=== PATIENT | male | born 1980 | race Caucasian/White ===

== ENCOUNTER 2017-01-07 13:19 | Inpatient (IN) | payer SELFPAY ==
--- NOTE | ~2017-01-07 | HP ---
History And Physical [facility] [address] [place]. [address] NAME: KEN KHAN : 80 STATUS : ADM IN [facility]#: [id number] AGE: 36 ADM/REG DATE : 01/07/17 MR#: [id number] REPORT SERV DATE: 01/07/17 DICTATED BY: CONCHITA SANCHEZ DATE: 01/07/17 REPORT STATUS : Draft TRANSCRIBED BY: MODJimy DATE: 01/07/17 DATE OF ADMISSION: 01/07/2017 CHIEF COMPLAINT: Agitation and homicidal threats. HISTORY OF PRESENT ILLNESS: This is a 36-year-old male who has a medical history significant for polysubstance abuse, who was a resident of outpatient rehab facility at [place], who recently moved back to [place] and was noted to be acting belligerent at one of the [place] post office and the police was called to the scene. It was noted that on arrival of police at the scene of the incident, the patient was acting paranoid, was yelling out homicidal threat and was acting belligerent. The patient was arrested at the scene and brought to the ER now for further evaluation. In the ER, it was noted that the patient continued to be agitated and restless while in the ER. He was also noted to have multiple check moses in his forearm and lower extremities and in the groin area. Initial laboratory testing showed leukocytosis. Also in the ER, he was noted to have significant erythema of the bilateral forearm concerning for possible cellulitis. Also, urine drug screen in the ER was positive for amphetamine and opiates. Due to the patient's persistent agitation in the ER, the patient received IM Geodon 20 mg. At the time of my interview, the patient was completely somnolent and difficult to arouse. I made multiple attempts to wake up the patient in order to take a full HPI, but the patient was completely sleepy and noncooperative. Hence, I was not able to obtain a detailed HPI from the patient. The above dictated HPI was per chart review from [facility]. PAST MEDICAL HISTORY: Significant for: 1. Polysubstance abuse. 2. Cellulitis of the leg. PAST SURGICAL HISTORY: Not available. SOCIAL HISTORY: History of polysubstance abuse, heroin use, as well as amphetamine use, noted also to have history of tobacco use and alcohol use. At this time, I could not obtain patient's detailed social history, resident where he lives because he is completely somnolent and not waking up to answer questions at this time. FAMILY HISTORY: Unable to obtain. MEDICATION HISTORY: No list available on [facility] review. The patient unable to provide history. ALLERGY HISTORY: Per [facility] review, no known drug allergies. REVIEW OF SYSTEMS: Unable to obtain. The patient is somnolent after IM Geodon. PHYSICAL EXAMINATION: VITAL SIGNS: Blood pressure is 156/100, pulse 102 beats per minute, temperature 98 degrees History And Physical [address] [address] NAME: KEN KHAN : 80 STATUS : ADM IN [facility]#: [id number] AGE: 36 ADM/REG DATE : 01/07/17 MR#: [id number] REPORT SERV DATE: 01/07/17 DICTATED BY: CONCHITA SANCHEZ DATE: 01/07/17 REPORT STATUS : Draft TRANSCRIBED BY: CATHERINE DATE: 01/07/17 Celsius, saturating 97% on room air. GENERAL: Lying in bed quietly, very sleepy, and unable to arouse and the patient to wake up. The patient is very agitated and not cooperative. HEENT: Extraocular muscles intact. Pupils equal and reactive. NECK: Supple. No palpable cervical lymphadenopathy. CHEST: Equal expansion. LUNGS: Clear to auscultation bilaterally. No crackles. No wheezing. No rhonchi. CARDIOVASCULAR: Heart regular rate and rhythm. S1-S2. No murmurs appreciated. ABDOMEN: Soft, nontender. No palpably enlarged organomegaly. EXTREMITIES: No pedal edema. NEUROLOGICAL: Limited. The patient is noncooperative. SKIN: Extensive erythema at the anterior forearm extending from the cubital fossa to the mid forearm bilaterally and warm to touch. LABORATORY DATA: Hematology: WBC 12.3, RBC 4.38, MCV 87.0, and MHC 37.0. Urine drug screen, complete, amphetamine positive, opiates positive. Chemistry: Sodium 138, potassium 3.7, chloride 102, bicarb 26, BUN 27, creatinine 1.33. GFR 68, glucose 108, calcium 9.2, total protein 8.3, albumin 4.5, globulin 3.8, albumin- globin ratio 1.2, total bilirubin 1.6. Alkaline phosphatase 6.62, ALT 63, and AST 74. Acetaminophen level less than 2.0. Imaging, none available. Urinalysis, none available. In summary, this is a 36-year-old male with a history of polysubstance abuse, who was brought to the hospital by the police after he was found to be acting belligerent at a post office. On arrival to the emergency room, he was found to have a urine drug screen positive for opioids and amphetamines. Also noted was bilateral forearm cellulitis. ASSESSMENT AND PLAN: 1. Bilateral forearm cellulitis. The patient has extensive erythema extending from the cubital fossa to the midforearm bilaterally. Also noted to have leukocytosis of 12.3. Blood cultures have been taken in the Emergency Room at this time. The patient is currently receiving IV vancomycin and Zosyn. Given the patient's known history of IV drug use, I will be highly suspicious for possible Staph aureus bacteremia in this patient. We will follow the patient's blood cultures closely. Based on the results of the blood cultures, we will determine if the patient will need an echocardiogram for further evaluation. At this time, we will continue broad-spectrum antibiotics and continue to monitor. 2. Polysubstance abuse. The patient has a history of polysubstance abuse, has urine drug screen positive for heroin and amphetamines. The patient's presentation of paranoia, agitation, homicidal threats may be related to acute intoxication of amphetamine, however given the patient's homicidal threats and the patient is currently on History And Physical [address] [address] NAME: KEN KHAN : 80 STATUS : ADM IN PAT#: [id number] AGE: 36 ADM/REG DATE : 01/07/17 MR#: [id number] REPORT SERV DATE: 01/07/17 DICTATED BY: CONCHITA SANCHEZ DATE: 01/07/17 REPORT STATUS : Draft TRANSCRIBED BY: MODJimy DATE: 01/07/17 . The patient has received IM Geodon and currently sleeping quietly without any further episodes of agitation. At this time, I will continue patient's . I will consult Psychiatry to help rule out any form of psychiatric disorder in this patient. As well, I will order IV lorazepam 1-2 mg p.r.n. for agitation due to amphetamine intoxication. If the patient's agitation is not controlled by lorazepam, I will order one time dose of IM Geodon to make a total of 40 mg in the next 24 hours. The patient will not receive more than 40 mg of Geodon in the next 24 hours except if recommended by Psychiatry. 3. I will also monitor the patient's withdrawals from amphetamine and heroin abuse. 4. Hypertension. The patient's blood pressure on presentation was 156/102 likely related to agitation and amphetamine use, known documented history of hypertension. We will monitor the patient closely. We will continue patient on benzodiazepines p.r.n. for agitation and monitor the patient's blood pressure closely. 5. Elevated creatinine. Creatinine of 1.3. The patient's last known baseline was approximately 1.0. We will start the patient on IV fluids. We will check creatinine phosphokinase in this patient to rule out rhabdo, given the patient's recent presentation of agitations. 6. Elevated bilirubin of 1.2. The patient ALT, AST, alkaline phosphatase are essentially within normal limits. I will order patient's fractionated bilirubin and continue further evaluation based on the results. 7. To complete infection workup in this patient, I will order a chest x-ray and urinalysis. 8. Deep vein thrombosis prophylaxis, heparin subcu. 9. Code status. Full code. 10.Disposition: We will admit the patient to the cardiac telemonitoring unit given the history of amphetamine use and tachycardia and agitation. 11.We will continue a one-on-one sitter for close monitoring and observation. We will consult Psychiatry to determine the duration of on this patient. The patient to be admitted under the hospitalist's care. MERI/CATHERINE Conchita Sanchez MD / [id number]
--- NOTE | ~2017-01-07 | CN ---
Consultation Report [facility] [address] [place]. [address] NAME: KEN KHAN : 80 STATUS : ADM IN PAT#: [id number] AGE: 36 ADM/REG DATE : 01/07/17 MR#: [id number] REPORT SERV DATE: 01/08/17 DICTATED BY: CHEIKH TAMEZ DATE: 01/08/17 REPORT STATUS : Draft TRANSCRIBED BY: CATHERINE DATE: 01/08/17 PSYCHIATRIC CONSULTATION DATE OF CONSULTATION: 01/08/2017 I reviewed this patient's medical record. I discussed his status with his nurse. HISTORY OF PRESENT ILLNESS: He was brought to our emergency room yesterday by the police in an agitated and paranoid state. He thought people were chasing him. PAST PSYCHIATRIC HISTORY: He just completed a prolonged treatment program for methamphetamine dependence on 12/27/2016. He was in the treatment program for 60 days and that was followed by 60 days in supervision in a [facility]. He returned to meth use after getting home. He denies any other psychiatric issues. SOCIAL HISTORY: He used to work as an electrician control equipment. He is hoping he can resume this career. He has been from his for some years. He has two children. He reports that he is estranged from his own family with the exception of his father who lives in [place]. MENTAL STATUS: He was sitting up, eating breakfast. He was calm and cooperative. His mood was euthymic. His affect was full and appropriate. His thinking was logical. He had no delusions. He had no hallucinations. He was oriented to time, place, and person. He demonstrated good recent and remote memory. DIAGNOSIS: Methamphetamine dependence. Methamphetamine intoxication, resolved. RECOMMENDATIONS: He does not harbor any suicidal or homicidal ideation at this time. He can be discharged to home when he is medically cleared. We discussed a plan for abstinence. The sitter can be discontinued. KRYSTLE/CATHERINE Cheikh Tamez M.D. / [id number] CC: Naseem Lucero M.D.
--- NOTE | ~2017-01-07 | HP ---
History And Physical [place] [address] [facility] [place]. [address] NAME: KEN KHAN : 80 STATUS : ADM IN [facility]#: [id number] AGE: 36 ADM/REG DATE : 01/07/17 MR#: [id number] REPORT SERV DATE: 01/08/17 DICTATED BY: TAMELA LUCERO DATE: 01/08/17 REPORT STATUS : Draft TRANSCRIBED BY: CATHERINE DATE: 01/08/17 DATE OF ADMISSION: 01/07/2017 TIME: 0730 hours. HISTORY: Mr. Khan is a 36-year-old, white male, transferred to my service last night without me being notified by the emergency room staff. He was brought in to the hospital by Police for homicidal threats at a post office. There was evidence of drug abuse. In fact, his drug screen was positive for opiates and amphetamines. Of note, he had developed swelling of his lower right arm which he reports this morning started after he injected himself with methamphetamine. PAST MEDICAL HISTORY: Significant for previous cellulitis and polysubstance drug abuse. REVIEW OF SYSTEMS: Otherwise negative and noncontributory. FAMILY HISTORY: Noncontributory. PHYSICAL EXAMINATION: VITAL SIGNS: This morning, his blood pressure is 109/56, pulse 76 and regular. He is afebrile, sating 100%. HEENT: Head is normocephalic. Sclerae and conjunctivae are clear. NECK: Supple. Good upstroke. No bruits. CHEST: Clear to auscultation and percussion. No wheezing or rhonchi. CARDIAC: S1 and S2. No murmurs, rubs or gallops. ABDOMEN: Soft and nontender. No masses or organomegaly. EXTREMITIES: Right lower arm is swollen at the brachial area. Slightly tender and reddened. Some injection moses noted on the arms. NEUROLOGIC: Currently, he is awake, alert, and oriented x3. Cranial nerves 2 through 12 are intact. Deep tendon reflexes appear to be normal. No adenopathy. LABORATORY DATA: Sodium 143, potassium 3.6, chloride 109, CO2 of 23, BUN 24, creatinine 1.12, glucose 75. Calcium 8.5, magnesium 2.7, phosphorus 2.8, albumin 3.4. CBC shows an H and H of 13.4 and 38.7, white count 8100, platelet count 186,000. Procalcitonin is 0.2. TSH 0.376. Free T4, 1.39. Chest x-ray is clear. EKG not done. IMPRESSION: 1. Polysubstance abuse. 2. Cellulitis. PLAN: We will continue Zosyn and vancomycin. He is getting echocardiogram today and we will get a Doppler ultrasound on his extremity. We transferred to the Hospitalist Service. History And Physical [address] [address] NAME: KEN KHAN : 80 STATUS : ADM IN [facility]#: [id number] AGE: 36 ADM/REG DATE : 01/07/17 MR#: [id number] REPORT SERV DATE: 01/08/17 DICTATED BY: TAMELA LUCERO DATE: 01/08/17 REPORT STATUS : Draft TRANSCRIBED BY: CATHERINE DATE: 01/08/17 RP/CATHERINE Tamela Lucero M.D. / [id number] CC: Tamela Lucero M.D.
[2017-01-07 13:23] LABS: BASOPHILS 0.2 %; BASOPHILS ABSOLUTE 0.02 10/3/uL (0.0-0.16); EOSINOPHILS 0.2 %; EOSINOPHILS ABSOLUTE 0.03 10/3/uL (0.0-0.53); ER CBC TAT 0 Hrs 05 MinsNP; HEMATOCRIT 42.5 % (40.0-51.0); HEMOGLOBIN 14.1 g/dL (13.6-17.8); IMMATURE GRANULOCYTES 0.2 %; IMMATURE GRANULOCYTES ABSOLUTE 0.03 10/3/uL (0.0-0.11); LYMPHOCYTES 10.5 %; LYMPHOCYTES ABSOLUTE 1.29 10/3/uL (0.67-4.30); MANUAL DIFF NO %; MEAN CORPUSCULAR HEMOGLOB 32.2 pg (26.0-34.0); MEAN PLATELET VOLUME 10.8 fL (9.2-13.0); MONOCYTES ABSOLUTE 1.61 10/3/uL (0.21-1.20); NEUTROPHILS 75.9 %; NEUTROPHILS ABSOLUTE 9.36 10/3/uL (2.02-8.40); PLATELET COUNT 211 10/3/uL (150-400); RBC DISTRIBUTION WIDTH 12.5 % (12.0-16.0); RED CELL COUNT 4.38 10/6/uL (4.7-6.1); WHITE BLOOD CELLS 12.3 10/3/uL (4.5-10.5)
[2017-01-07 13:39] LABS: A/G RATIO 1.2 (0.7-1.9); ALBUMIN 4.5 G/DL (3.5-5.0); ALKALINE PHOSPHATASE 62 U/L (45-117); BUN (BLOOD UREA NITROGEN) 27 MG/DL (6-23); CALCIUM, SERUM 9.2 MG/DL (8.5-10.4); CHLORIDE, SERUM 102 MMOL/L (96-112); CO2 (CARBON DIOXIDE) 26 MMOL/L (24-34); CREATININE 1.33 MG/DL (0.70-1.30); GFR AFRICAN AMERICAN 79 ML/MIN (>=60); GFR NON AFRICAN AMERICAN 68 ML/MIN (>=60); GLOBULIN 3.8 G/DL (2.5-4.1); GLUCOSE, SERUM 108 MG/DL (60-99); POTASSIUM, SERUM 3.7 MMOL/L (3.5-5.3); SALICYLATE 2.8 MG/DL (-); SGPT(ALT) 63 U/L (5-65); SODIUM, SERUM 138 MMOL/L (135-148); TOTAL BILIRUBIN 1.6 MG/DL (0-1.2); TOTAL PROTEIN 8.3 G/DL (6.0-8.5)
[2017-01-07 13:40] LABS: ACETAMINOPHEN LEVEL (TYLENOL) < 2.0 MCG/ML (10.0-20.0); ALCOHOL < 10 MG/DL (0); AMPHETAMINES (NOT ORD) POS (NEG); BARBITURATES (NOT ORDERED NEG (NEG); BENZODIAZEPINES (NOT ORD) NEG (NEG); CANNABINOIDS (THC) NEG (NEG); COCAINE (NOT ORDERED) NEG (NEG); OPIATES POS (NEG); PHENCYCLIDINE(PCP) NEG (NEG); SGOT(AST) 74 U/L (5-40); TRICYCLICS NEG (NEG)
[2017-01-08 00:03] LABS: FREE T4 1.39 NG/DL (0.76-1.46); PHOSPHORUS, SERUM 2.9 MG/DL (2.5-4.5); ULTRASENSITIVE TSH 0.376 MCIU/ML (0.358-3.740)
[2017-01-08 00:34] LABS: PROCALCITONIN 0.2 ng/mL (<0.5)
[2017-01-08 04:59] LABS: BASOPHILS 0.4 %; BASOPHILS ABSOLUTE 0.03 10/3/uL (0.0-0.16); EOSINOPHILS 2.6 %; EOSINOPHILS ABSOLUTE 0.21 10/3/uL (0.0-0.53); HEMATOCRIT 38.7 % (40.0-51.0); HEMOGLOBIN 13.4 g/dL (13.6-17.8); IMMATURE GRANULOCYTES 0.2 %; IMMATURE GRANULOCYTES ABSOLUTE 0.02 10/3/uL (0.0-0.11); LYMPHOCYTES 25.5 %; LYMPHOCYTES ABSOLUTE 2.06 10/3/uL (0.67-4.30); MANUAL DIFF NO %; MEAN CORPUS HGB CONC 34.6 g/dL (32.0-36.0); MEAN CORPUSCULAR HEMOGLOB 31.6 pg (26.0-34.0); MEAN CORPUSCULAR VOLUME 91.3 fL (80-100); MEAN PLATELET VOLUME 10.6 fL (9.2-13.0); MONOCYTES 16.4 %; MONOCYTES ABSOLUTE 1.32 10/3/uL (0.21-1.20); NEUTROPHILS 54.9 %; NEUTROPHILS ABSOLUTE 4.43 10/3/uL (2.02-8.40); PLATELET COUNT 186 10/3/uL (150-400); RBC DISTRIBUTION WIDTH 12.5 % (12.0-16.0); RED CELL COUNT 4.24 10/6/uL (4.7-6.1); WHITE BLOOD CELLS 8.1 10/3/uL (4.5-10.5)
[2017-01-08 05:26] LABS: BUN (BLOOD UREA NITROGEN) 24 MG/DL (6-23); CALCIUM, SERUM 8.5 MG/DL (8.5-10.4); CHLORIDE, SERUM 109 MMOL/L (96-112); CO2 (CARBON DIOXIDE) 23 MMOL/L (24-34); CREATININE 1.12 MG/DL (0.70-1.30); GFR AFRICAN AMERICAN 97 ML/MIN (>=60); GFR NON AFRICAN AMERICAN 84 ML/MIN (>=60); PHOSPHORUS, SERUM 2.8 MG/DL (2.5-4.5); POTASSIUM, SERUM 3.6 MMOL/L (3.5-5.3); SODIUM, SERUM 143 MMOL/L (135-148)
[2017-01-08 05:28] LABS: ALBUMIN 3.4 G/DL (3.5-5.0); GLUCOSE, SERUM 75 MG/DL (60-99)
[2017-01-08] MEDS ORDERED: *DENIES (12:03)
== END 2017-01-08 20:05 | disposition left against medical advice (07) | DRG 603 ==
LOC: ER 13:19 → CDU1 17:16 → CCU 21:34 → 5SO 01-08 15:14
PROVIDERS: Emergency Medicine; Internal Medicine Critical Care Medicine
DX: L03.113 Cellulitis of right upper limb (principal); F15.150 Other stimulant abuse with stimulant-induced psychotic disorder with delusions; I10 Essential (primary) hypertension; F11.222 Opioid dependence with intoxication with perceptual disturbance; L03.114 Cellulitis of left upper limb
CPT/HCPCS: 71010; 80053; 80069; 80305; 80307; 83605; 83735; 84100; 84145; 84439; 84443; 85025; 87040; 87641; 93005; 93306; 93971; 96365; 96375; 99285; A9270-GY; J2543; J3370; J3486